=== PATIENT | female | born 1985 | race Asian ===

== ENCOUNTER 2016-12-02 00:04 | Inpatient (IN) | payer SELFPAY ==
[~2016-12-02] VITALS: Ht 162.6 cm; Wt 54.4 kg
[2016-12-02] MEDS ORDERED: LACTATED RINGERS 1,000 ML IV SCH (00:33)
[2016-12-02] MEDS ORDERED: NALBUPHINE HYDROCHLORIDE 10 MG/ML VIAL IVP PRN (00:35)
[2016-12-02] MEDS ORDERED: MISOPROSTOL 25 MCG TAB VG PRN (00:35)
[2016-12-02] MEDS ORDERED: OXYTOCIN 10 UNITS/ML VIAL IM SCH (00:35)
[2016-12-02] MEDS ORDERED: PROMETHAZINE 25 MG/ML VIAL IVP PRN (00:35)
[2016-12-02 00:55] LABS: APPEARANCE,URINE CLEAR (CLEAR); BILIRUBIN,URINE NEGATIVE (NEGATIVE); BLOOD, URINE NEGATIVE (NEGATIVE); COLOR,URINE YELLOW (YELLOW); LEUKOCYTE ESTERASE ,URINE NEGATIVE (NEGATIVE); NITRITE, URINE NEGATIVE (NEGATIVE); PH,URINE 7.5 (5.0-9.0); PROTEIN,URINE NEGATIVE (NEGATIVE); UGLUCOSE NEGATIVE (NEGATIVE); UROBILINOGEN,URINE 0.2 EU/dL (0.2 - 1)
[2016-12-02] MEDS ORDERED: MISOPROSTOL 25 MCG TAB ONE (01:34)
[2016-12-02 02:33] LABS: BACTERIA,URINE None Seen /HPF (None Seen); MUCUS,URINE 3+ /LPF (None Seen); RBC,URINE NONE SEEN /HPF (0-5); SQUAMOUS EPITHELIAL CELL,UR 0-3 (FEW) /LPF (0-3 (FEW)); WBC,URINE NONE SEEN /HPF (0-5)
[2016-12-02 02:46] LABS: BASOPHILS % (AUTO) 0.4 % (0.0-2.0); EOSINOPHILS # (AUTO) 0.1 K/uL (0-0.4); EOSINOPHILS % (AUTO) 1.9 % (0.0-4.0); HEMATOCRIT 35.8 % (36-48); HEMOGLOBIN 11.5 g/dL (12.0-16.0); LYMPHOCYTES # (AUTO) 1.2 K/uL (2.5-16.5); LYMPHOCYTES % (AUTO) 15.3 % (20.5-51.1); MEAN CORPUSCULAR HEMOGLOBIN 30 pg (27-31); MEAN CORPUSCULAR HGB CONC 32 g/dL (33-37); MEAN CORPUSCULAR VOLUME 94 fL (80-94); MONOCYTES # (AUTO) 0.8 K/uL (0.8-1.0); MONOCYTES % (AUTO) 9.9 % (1.7-9.3); NEUTROPHILS # (AUTO) 5.5 K/uL (1.8-7.7); NEUTROPHILS % (AUTO) 72.5 % (42.2-75.2); PLATELET COUNT (AUTO) 184 K/uL (140-450); RED BLOOD CELL COUNT(AUTO) 3.83 MIL/uL (4.20-5.40); RED CELL DISTRIBUTION WIDTH 13.2 % (11.6-13.7); WHITE BLOOD COUNT (AUTO) 7.6 K/uL (4.8-10.8)
[2016-12-02 03:22] LABS: HIV RAPID SCREEN NON-REACTIVE (NON REACTIV)
[2016-12-02 03:54] VITALS: BP 116/71
[2016-12-02] MEDS ORDERED: INFLUENZA VIRUS VACCINE QUAD 0.5 ML SYR IMVAC SCH (04:00)
[2016-12-02] MEDS ORDERED: PREN-546 PO (04:03)
[2016-12-02] MEDS ORDERED: DOCO300C PO (04:04)
[2016-12-02] MEDS ORDERED: FERR325E14 PO (04:04)
[2016-12-02] MEDS ORDERED: OXYTOCIN 20 UNITS/LR PREMIX 1,000 ML IV SCH (07:10)
[2016-12-02 07:31] LABS: RAPID PLASMA REAGIN NON-REACTIVE (Non Reactiv)
--- NOTE | 2016-12-02 07:55 | NUR ---
PATIENT HAS BEEN SCREENED AND CATEGORIZED LOW NUTRITION RISK. PATIENT WILL BE SEEN WITHIN 7 DAYS OF ADMISSION. 12/08/[address]
[2016-12-02] MEDS ORDERED: OXYTOCIN 20 UNITS/LR PREMIX 1,000 ML IV ONE (08:14)
[2016-12-02] MEDS ORDERED: ROPIVACAINE 0.2%/NS PREMIX 250 ML EPI ONE (09:15)
[2016-12-02] MEDS ORDERED: OXYTOCIN 10 UNITS/ML VIAL ONE (22:20)
[2016-12-02] MEDS ORDERED: oxyCODONE/APAP 5/325 MG 1 TAB TAB PO PRN (23:05)
[2016-12-02] MEDS ORDERED: IBUPROFEN 800 MG TAB PO PRN (23:05)
[2016-12-02] MEDS ORDERED: WITCH HAZEL 40 PAD PACKAGE TP PRN (23:05)
[2016-12-02] MEDS ORDERED: METHYLERGONOVINE 0.2 MG/ML AMP IM PRN (23:05)
[2016-12-02] MEDS ORDERED: OXYTOCIN 10 UNITS/ML VIAL IM PRN (23:05)
[2016-12-02] MEDS ORDERED: TEMAZEPAM 15 MG CAP PO PRN (23:05)
[2016-12-02] MEDS ORDERED: HYDROcodone/APAP 5/325 MG 1 TAB TAB PO PRN (23:05)
[2016-12-02] MEDS ORDERED: MEASLES, MUMPS, AND RUBELLA 1 VIAL SQVAC PRN (23:05)
[2016-12-02] MEDS ORDERED: BENZOCAINE/MENTHOL 20%-0.5% 60 GM CAN TP PRN (23:05)
[2016-12-03 05:40] LABS: HEMATOCRIT 32.6 % (36-48); HEMOGLOBIN 10.8 g/dL (12.0-16.0)
[2016-12-03] MEDS ORDERED: DOCUSATE SOD/SENNA 50/8.6 MG 1 TAB PO SCH (21:00)
== END 2016-12-04 15:00 | disposition home or self-care (01) | DRG 775 ==
LOC: MLD 00:04 → MFCC 12-03 04:05
PROVIDERS: ADMIT Obstetrics & Gynecology; ATTEND Obstetrics & Gynecology
PROC: 10E0XZZ Delivery of Products of Conception, External Approach (ICD-10-PCS; principal; 2016-12-02)
PROC: 0KQM0ZZ Repair Perineum Muscle, Open Approach (ICD-10-PCS; 2016-12-02)
PROC: 10907ZC Drainage of Amniotic Fluid, Therapeutic from Products of Conception, Via Natural or Artificial Opening (ICD-10-PCS; 2016-12-02)
PROC: 3E0P7GC Introduction of Other Therapeutic Substance into Female Reproductive, Via Natural or Artificial Opening (ICD-10-PCS; 2016-12-02)
PROC: 3E033VJ Introduction of Other Hormone into Peripheral Vein, Percutaneous Approach (ICD-10-PCS; 2016-12-02)
PROC: 00HU33Z Insertion of Infusion Device into Spinal Canal, Percutaneous Approach (ICD-10-PCS; 2016-12-02)
PROC: 3E0R3CZ (ICD-10-PCS; 2016-12-02)
PROC: 3E0234Z Introduction of Serum, Toxoid and Vaccine into Muscle, Percutaneous Approach (ICD-10-PCS; 2016-12-04)
DX: O70.1 Second degree perineal laceration during delivery (principal); Z37.0 Single live birth; Z3A.39 39 weeks gestation of pregnancy; Z88.0 Allergy status to penicillin; Z23 Encounter for immunization
CPT/HCPCS: 36415; 59200; 59409; 81001; 85018; 85025; 86592; 86886; 86900; 86901; 90658; 90715; J2590; J2795; J7120